=== PATIENT | female | born 1990 | race Caucasian/White ===

== ENCOUNTER → 2016-09-24 | Outpatient (CLI) | payer OTHER | LOC: RAD 08:44 | PROVIDERS: ATTEND Family Medicine | DX: R10.0 Acute abdomen (principal); R11.0 Nausea | CPT/HCPCS: 74249 ==

== ENCOUNTER → 2016-11-08 | Outpatient (CLI) | payer OTHER | LOC: CCC 12:59 | DX: R10.13 Epigastric pain (principal); R11.0 Nausea | CPT/HCPCS: 36415; 84443; 84702; 86677 ==

== ENCOUNTER → 2017-02-07 | Outpatient (CLI) | payer OTHER | LOC: RAD 10:48 | DX: R10.11 Right upper quadrant pain (principal) | CPT/HCPCS: 76700; 93976 ==

== ENCOUNTER → 2017-03-12 | Outpatient (CLI) | payer OTHER ==
--- NOTE | 2017-03-12 14:35 | RADIOLOGY REPORT (SQ) ---
EXAM DESCRIPTION: U/S NON-OB PELVIS W/O DOP COMPLETED DATE/TIME: 03/12/2017 2:05 pm REASON FOR STUDY: HIRSUTISM, PCOS L68.0 HIRSUTISM COMPARISON: None. TECHNIQUE: Dynamic and static grayscale images acquired of the pelvis via transabdominal approach an d recorded on PACS. Additional selected color Doppler and spectral images recorded. LIMITATIONS: Large patient, transabdominal technique FINDINGS: UTERUS: Contour normal. No mass. Uterus measures 7 x 3 x 3 cm in size. ENDOMETRIAL STRIPE: No focal or generalized thickening. No masses. 7 mm in thickness CERVIX: No nabothian cysts. RIGHT OVARY: Right ovary 2.8 x 2.4 x 2.6 cm in size with numerous peripheral hypoechoic follicular cy sts worrisome for polycystic ovarian disease RIGHT OVARY DOPPLER: Normal arterial vascular flow without evidence for torsion. LEFT OVARY: Left ovary 2.5 x 2.2 x 2.1 cm in size, with numerous peripheral hypoechoic follicular cys ts worrisome for polycystic ovarian disease LEFT OVARY DOPPLER: Normal arterial vascular flow without evidence for torsion. FREE FLUID: None noted. OTHER: No other significant finding. IMPRESSION: Findings worrisome for polycystic ovarian disease TECHNICAL DOCUMENTATION: JOB ID: [id number] [employer]- All Rights Reserved
== END ==
LOC: RAD 12:49
DX: L68.0 Hirsutism (principal); E28.2 Polycystic ovarian syndrome
CPT/HCPCS: 76856

== ENCOUNTER → 2017-05-14 | Outpatient (CLI) | payer OTHER ==
[2017-05-16 10:09] LABS: FOLLICLE STIMULATING HORMONE 3.2 mIU/mL (.); PROLACTIN 43.8 ng/mL (4.8-23.3)
[2017-05-19 10:48] LABS: 17-ALPHA HYDROXYPROGESTERONE 59 ng/dL (.)
== END ==
LOC: CCC 12:47
DX: E28.2 Polycystic ovarian syndrome (principal)
CPT/HCPCS: 36415; 82627; 83001; 83036; 83498; 84146; 84403; 84703

== ENCOUNTER → 2017-05-20 | Outpatient (CLI) | payer OTHER ==
[2017-05-20 14:50] LABS: ANION GAP 14 (5-19); BLOOD UREA NITROGEN 15 mg/dL (7-20); CALCIUM 10.1 mg/dL (8.4-10.2); CARBON DIOXIDE 25 mmol/L (22-30); CHLORIDE 103 mmol/L (98-107); CREATININE RESULT 0.83 mg/dL (0.52-1.25); GLUCOSE 95 mg/dL (75-110); POTASSIUM 4.4 mmol/L (3.6-5.0); SODIUM 141.9 mmol/L (137-145)
== END ==
LOC: CCC 13:45
DX: Z01.812 Encounter for preprocedural laboratory examination (principal)
CPT/HCPCS: 36415; 80048

== ENCOUNTER → 2017-05-23 | Outpatient (CLI) | payer OTHER ==
--- NOTE | 2017-05-27 09:13 | RADIOLOGY REPORT (SQ) ---
EXAM DESCRIPTION: MRI HEAD COMBO COMPLETED DATE/TIME: 05/23/2017 10:38 am REASON FOR STUDY: HYPERPROLACTINEMIA (E22.1) E22.1 HYPERPROLACTINEMIA G43.909 MIGRAINE, UNSP, NOT INTRACTABLE, WITHOUT STATUS MIGR COMPARISON: None. TECHNIQUE: Multiplanar imaging includes noncontrasted T1, T2, FLAIR, diffusion with ADC map and post gadolinium contrast T1 sequences. Images stored on PACS. Additional thin section T2, thin section pre and postcontrast T1 weighted images through the pituitar y gland with small field of view. CONTRAST TYPE AND DOSE: 15 mL Multihance. RENAL FUNCTION: GFR > 60. LIMITATIONS: None. FINDINGS: PITUITARY GLAND AND SELLA: Overall, the pituitary gland measures 10 mm craniocaudad by 8 m m transverse by 12 mm AP. A normal posterior pituitary bright spot is present. In the anterior lobe of the pituitary, on sagittal T2 image 7, a 5 x 5 mm nodule is present with signal slightly decrease d as compared to the remainder of the gland. On the T1 images both pre and post contrast this is not well seen. Patient may have a 5 mm microadenoma in the anterior lobe of the pituitary. The pituitary infundibulum is midline. No impression on the optic chiasm. Cavernous sinuses are nor mal. CSF SPACES: Normal in size and contour. No hemorrhage. CEREBRUM: Sulci and gyri normal in size and contour. Normal white matter signal on FLAIR imaging. No evidence of hemorrhage, mass, or extraaxial fluid collection. No abnormal enhancement post contrast. Benign venous angioma right frontal cortex of doubtful significance, axial T1 postcontrast image 21. POSTERIOR FOSSA: No signal alteration. No hemorrhage. No edema, masses, or mass effect. Internal pooja tory canals, cerebellopontine angles, mastoids normal. No enhancing lesions. No abnormal enhancement post contrast. DIFFUSION IMAGING: Negative for acute or subacute infarction. ORBITS: No masses. Globes normal. PARANASAL SINUSES: No fluid levels. Mucosa normal. OTHER: No other significant finding. IMPRESSION: Question 5 mm anterior lobe pituitary microadenoma. Remainder of the study is otherwise unremarkable. EVIDENCE OF ACUTE STROKE: NO. TECHNICAL DOCUMENTATION: JOB ID: [id number]- All Rights Reserved
== END ==
LOC: RAD 09:17
DX: E22.1 Hyperprolactinemia (principal)
CPT/HCPCS: 70553; A9576

== ENCOUNTER 2017-07-17 09:48 | Emergency (ER) | payer OTHER ==
[2017-07-17] MEDS ORDERED: ONDANSETRON 4 MG TAB.RAPDIS PO ONE (10:07)
[2017-07-17] MEDS ORDERED: DICYCLOMINE HCL 20 MG TABLET PO ONE (10:07)
[2017-07-17 10:36] LABS: ABSOLUTE EOSINOPHILS # (AUTO) 0.2 10^3/uL (0.0-0.6); ABSOLUTE LYMPHOCYTES (AUTO) 1.9 10^3/uL (0.5-4.7); ABSOLUTE MONOCYTES (AUTO) 0.4 10^3/uL (0.1-1.4); ABSOLUTE NEUT (AUTO) 3.2 10^3/uL (1.7-8.2); BASOPHILS % (AUTO) 0.7 % (0-2); EOSINOPHILS % (AUTO) 3.1 % (0-6); HEMATOCRIT 43.4 % (36.0-47.0); HEMOGLOBIN 15.2 g/dL (12.0-15.5); HGB HCT DIFFERENCE 2.2; LYMPHOCYTES % (AUTO) 33.1 % (13-45); MEAN CORPUSCULAR HEMOGLOBIN 30.2 pg (27.0-33.4); MEAN CORPUSCULAR VOLUME 86 fl (80-97); MONOCYTES % (AUTO) 7.5 % (3-13); RED BLOOD COUNT 5.03 10^6/uL (3.72-5.28); RED CELL DISTRIBUTION WIDTH 13.1 % (11.5-14.0); SEGMENTED NEUTROPHILS % (AUTO) 55.6 % (42-78); WHITE BLOOD COUNT 5.7 10^3/uL (4.0-10.5)
--- NOTE | 2017-07-17 10:40 | ER Document Report ---
ED General - General Chief Complaint: Abdominal Pain Stated Complaint: ABDOMINAL PAIN Time Seen by Provider: 07/17/17 10:07 TRAVEL OUTSIDE OF THE [place] IN LAST 30 DAYS: No - HPI Patient complains to provider of: Abdominal pain Notes: Patient coming in for abdominal pain ongoing for 1 week. Patient states the pain is in her intestines points to the middle of her abdomen. Denies any fever chills nausea vomiting or diarrhea. Patient states last bowel movement was approximately 2 days ago. Patient last menstrual cycle was on the . Patient denies taking any medications for her pain states that she recently stopped taking her trazodone and Reglan that was prescribed to her. Patient states she has dealt with constipation before the past. Patient otherwise resting comfortably no signs of any obvious distress upon my evaluation denies any recent antibiotics denies any surgical procedures denies any recent trauma. Past Medical History - Social History Smoking Status: Current Every Day Smoker Chew tobacco use (# tins/day): No - 6-7 cigarettes/day Frequency of alcohol use: Rare Drug Abuse: None Family History: Reviewed & Not Pertinent Renal/ Medical History: Denies: Hx Peritoneal Dialysis Review of Systems - Review of Systems Constitutional: No symptoms reported EENT: No symptoms reported Cardiovascular: No symptoms reported Respiratory: No symptoms reported Gastrointestinal: Abdominal pain Genitourinary: No symptoms reported Female Genitourinary: No symptoms reported Musculoskeletal: No symptoms reported Skin: No symptoms reported Hematologic/Lymphatic: No symptoms reported Neurological/Psychological: No symptoms reported Physical Exam - Vital signs Vitals: Temp Pulse Resp BP Pulse Ox 98.2 F 116 H 20 133/73 H 99 07/17/17 09:53 07/17/17 09:53 07/17/17 09:53 07/17/17 09:53 07/17/17 09:53 Interpretation: Normal - General General appearance: Appears well, Alert - HEENT Head: Normocephalic, Atraumatic Eyes: Normal Pupils: PERRL - Respiratory Respiratory status: No respiratory distress Chest status: Nontender Breath sounds: Normal Chest palpation: Normal - Cardiovascular Rhythm: Regular Heart sounds: Normal auscultation Murmur: No - Abdominal Inspection: Normal Distension: No distension Bowel sounds: Normal Tenderness: Nontender Organomegaly: No organomegaly - Back Back: Normal, Nontender - Extremities General upper extremity: Normal inspection, Nontender, Normal color, Normal ROM , Normal temperature General lower extremity: Normal inspection, Nontender, Normal color, Normal ROM , Normal temperature, Normal weight bearing. No: Neel's sign - Neurological Neuro grossly intact: Yes Cognition: Normal Orientation: AAOx4 Dowell Coma Scale Eye Opening: Spontaneous Dowell Coma Scale Verbal: Oriented Jorje Coma Scale Motor: Obeys Commands Jorje Coma Scale Total: 15 Speech: Normal Motor strength normal: LUE, RUE, LLE, RLE Sensory: Normal - Psychological Associated symptoms: Normal affect, Normal mood - Skin Skin Temperature: Warm Skin Moisture: Dry Skin Color: Normal Course - Re-evaluation Re-evalutation: 07/17/17 10:39 Vital signs showed tachycardia however on auscultation of the patient while resting in triage no signs of tachycardia. Patient had a normal heart rate. Patient examination otherwise benign no abdominal tenderness to deep auscultation of the patient's abdomen. Will check basic lab work and a acute abdominal series more likely discharge home at this time no signs of any surgical pathology. - Vital Signs Vital signs: Temp Pulse Resp BP Pulse Ox 98.2 F 116 H 20 133/73 H 99 07/17/17 09:53 07/17/17 09:53 07/17/17 09:53 07/17/17 09:53 07/17/17 09:53 - Laboratory Result Diagrams: 07/17/17 10:15 07/17/17 10:15 Laboratory results interpreted by me: 07/17/17 07/17/17 10:15 10:15 Calcium 10.4 H Urine Ketones 20 H Urine Urobilinogen 2.0 H Discharge - Discharge Clinical Impression: Abdominal pain Qualifiers: Abdominal location: unspecified location Qualified Code(s): R10.9 - Unspecified abdominal pain Condition: Good Instructions: Abdominal Pain ([facility]), Gastroenterology Additional Instructions: At this time your labs show no abnormalities your examination does not show any abnormalities consistent with a surgical or infectious pathology for your abdominal pain. Please continue your medications as prescribed we will send you home with pain medication Bentyl to help out with your pain. Follow-up with your primary care physician. I would recommend taking a daily stool softener to aid in possible constipation. Prescriptions: Dicyclomine HCl [Bentyl 20 mg Tablet] 20 mg PO QID #30 tablet Docusate Sodium [Colace 100 mg Capsule] 100 mg PO DAILY #30 capsule Forms: Return to Work
[2017-07-17 10:41] LABS: APPEARANCE,URINE CLOUDY; BILIRUBIN,URINE NEGATIVE (NEGATIVE); GLUCOSE, URINE NEGATIVE (NEGATIVE); KETONES,URINE 20 mg/dL (NEGATIVE); LEUKOCYTE ESTERASE,URINE NEGATIVE (NEGATIVE); NITRITE,URINE NEGATIVE (NEGATIVE); PROTEIN,URINE NEGATIVE (NEGATIVE); URINE SPECIFIC GRAVITY 1.027
[2017-07-17 10:56] LABS: ALANINE AMINOTRANSFERASE 31 U/L (9-52); ALBUMIN 4.8 g/dL (3.5-5.0); ALKALINE PHOSPHATASE 97 U/L (38-126); ANION GAP 16 (5-19); ASPARTATE AMINO TRANSFERASE 18 U/L (14-36); BILIRUBIN,DIRECT 0.4 mg/dL (0.0-0.4); BILIRUBIN,TOTAL 0.8 mg/dL (0.2-1.3); BLOOD UREA NITROGEN 11 mg/dL (7-20); CALCIUM 10.4 mg/dL (8.4-10.2); CARBON DIOXIDE 22 mmol/L (22-30); CHLORIDE 106 mmol/L (98-107); CREATININE RESULT 0.89 mg/dL (0.52-1.25); GLUCOSE 92 mg/dL (75-110); LIPASE 83.9 U/L (23-300); POTASSIUM 3.8 mmol/L (3.6-5.0); SODIUM 143.9 mmol/L (137-145); TOTAL PROTEIN 8.1 g/dL (6.3-8.2)
--- NOTE | 2017-07-17 11:01 | RADIOLOGY REPORT (SQ) ---
EXAM DESCRIPTION: ACUTE ABDOMEN SERIES COMPLETED DATE/TIME: 07/17/2017 10:46 am REASON FOR STUDY: abd pain COMPARISON: None. NUMBER OF VIEWS: Three views. TECHNIQUE: Frontal chest, supine abdomen and upright/decubitus abdomen radiographic images acquired. LIMITATIONS: None. FINDINGS: CHEST: Lungs clear of infiltrates. FREE AIR: None. No abnormal gas collections. BOWEL GAS PATTERN: Nonobstructive pattern. No dilated loops or air fluid levels. CALCIFICATIONS: No suspicious calcifications. HARDWARE: None in the abdomen. SOFT TISSUES: No gross mass or suggestion of organomegaly. BONES: No acute fracture. No worrisome bone lesions. OTHER: No other significant finding. IMPRESSION: NO RADIOGRAPHIC EVIDENCE FOR ACUTE ABDOMINAL DISEASE. TECHNICAL DOCUMENTATION: JOB ID: [id number] [employer]- All Rights Reserved
[2017-07-17 11:29] VITALS: BP 128/77
== END 2017-07-17 11:34 | disposition home or self-care (01) ==
LOC: ER 09:48
DX: R10.9 Unspecified abdominal pain (principal); F17.210 Nicotine dependence, cigarettes, uncomplicated
CPT/HCPCS: 99284; 36415; 84702; 83690; 85025; 80053; 81001; 74022; J3490; S0119

== ENCOUNTER 2017-09-03 09:57 | Emergency (ER) | payer OTHER ==
[2017-09-03] MEDS ORDERED: KETOROLAC TROMETHAMINE 60 MG/2 ML SDV IM ONE (10:48)
--- NOTE | 2017-09-03 10:54 | ER Document Report ---
ED General - General Chief Complaint: Low Back Pain Stated Complaint: LOW BACK PAIN Time Seen by Provider: 09/03/17 10:30 Notes: 27 yo female c/o bilat flank and low back pain x 3wks. + urinary frequency, urgency and dysuria. denies any vaginal discharge, odor or pain. admits to taking a friend's "left over antibiotic" which temporarily eased the symptoms. denies fever, nausea or vomiting TRAVEL OUTSIDE OF THE [place] IN LAST 30 DAYS: No - HPI Onset/Duration: Persistent Quality of pain: Achy Pain Level: 3 Associated symptoms: denies: Chills, Fever Exacerbated by: Denies Relieved by: Denies Similar symptoms previously: Yes Recently seen / treated by doctor: No - Related Data Allergies/Adverse Reactions: No Known Allergies Allergy (Unverified 09/03/17 10:00) Past Medical History - General Information source: Patient - Social History Smoking Status: Current Every Day Smoker Cigarette use (# per day): Yes - 7 Frequency of alcohol use: None Drug Abuse: None Family History: Reviewed & Not Pertinent Patient has suicidal ideation: No Patient has homicidal ideation: No Neurological Medical History: Reports: Hx Migraine Endocrine Medical History: Reports: Other - PCOS Renal/ Medical History: Denies: Hx Peritoneal Dialysis Malignancy Medical History: Reports: Other - pituitary tumor GI Medical History: Reports: Hx Gastroesophageal Reflux Disease Review of Systems - Review of Systems Constitutional: No symptoms reported EENT: No symptoms reported Cardiovascular: No symptoms reported Respiratory: No symptoms reported Gastrointestinal: No symptoms reported Genitourinary: See HPI Female Genitourinary: No symptoms reported Musculoskeletal: No symptoms reported Skin: No symptoms reported Hematologic/Lymphatic: No symptoms reported Neurological/Psychological: No symptoms reported Physical Exam - Vital signs Vitals: Temp Pulse Resp BP Pulse Ox 98.5 F 113 H 12 146/78 H 98 09/03/17 10:04 09/03/17 10:04 09/03/17 10:04 09/03/17 10:04 09/03/17 10:04 Interpretation: Normal - General General appearance: Appears well, Alert - HEENT Head: Normocephalic, Atraumatic Eyes: Normal Pupils: PERRL - Respiratory Respiratory status: No respiratory distress Chest status: Nontender Breath sounds: Normal Chest palpation: Normal - Cardiovascular Rhythm: Regular Heart sounds: Normal auscultation Murmur: No - Abdominal Inspection: Normal Distension: No distension Bowel sounds: Normal Tenderness: Nontender Organomegaly: No organomegaly - Back Back: Tender, CVA tenderness - bilat. No: Vertebra tenderness - Extremities General upper extremity: Normal inspection, Nontender, Normal color, Normal ROM , Normal temperature General lower extremity: Normal inspection, Nontender, Normal color, Normal ROM , Normal temperature, Normal weight bearing. No: Neel's sign - Neurological Neuro grossly intact: Yes Cognition: Normal Orientation: AAOx4 Maud Coma Scale Eye Opening: Spontaneous Maud Coma Scale Verbal: Oriented Jorje Coma Scale Motor: Obeys Commands Jorje Coma Scale Total: 15 Speech: Normal Motor strength normal: LUE, RUE, LLE, RLE Sensory: Normal - Psychological Associated symptoms: Normal affect, Normal mood - Skin Skin Temperature: Warm Skin Moisture: Dry Skin Color: Normal Course - Re-evaluation Re-evalutation: 09/03/17 11:34 urinalysis is unremarkable, but pt is classically symptomatic. will treat for UTI and wait for urine culture results. pt is showing no signs of sepsis or shock. home care, f/u pcm, ED return precautions discussed with pt. pt agreeable with plan and stable for discharge - Vital Signs Vital signs: Temp Pulse Resp BP Pulse Ox 98.5 F 113 H 12 146/78 H 98 09/03/17 10:04 09/03/17 10:04 09/03/17 10:04 09/03/17 10:04 09/03/17 10:04 Discharge - Discharge Clinical Impression: Dysuria Condition: Stable Disposition: HOME, SELF-CARE Instructions: Urinary Tract Infection ([facility]), Antibiotic Therapy ([facility]), Ibuprofen (General) ([facility]) Additional Instructions: take meds as prescribed urine culture is pending warm compresses to back follow nup with parimary care if symtpoms persist return to ER for any worsening Prescriptions: Ciprofloxacin HCl [Cipro 500 mg Tablet] 500 mg PO BID #10 tablet Ibuprofen [Motrin 800 Mg Tablet] 800 mg PO Q6H #20 tablet Referrals: BRYANT WHEELER MD [Primary Care Provider] - Follow up as needed
[2017-09-03 11:05] LABS: APPEARANCE,URINE CLEAR; BILIRUBIN,URINE NEGATIVE (NEGATIVE); COLOR,URINE COLORLESS; GLUCOSE, URINE NEGATIVE (NEGATIVE); KETONES,URINE NEGATIVE (NEGATIVE); LEUKOCYTE ESTERASE,URINE NEGATIVE (NEGATIVE); NITRITE,URINE NEGATIVE (NEGATIVE); PROTEIN,URINE NEGATIVE (NEGATIVE); URINE SPECIFIC GRAVITY 1.003; UROBILINOGEN,URINE NEGATIVE mg/dL (<2.0)
[2017-09-03 11:48] VITALS: BP 120/70
== END 2017-09-03 11:49 | disposition home or self-care (01) ==
LOC: ER 09:57
DX: R30.0 Dysuria (principal); M54.5 Low back pain; R35.0 Frequency of micturition; R39.15 Urgency of urination; F17.210 Nicotine dependence, cigarettes, uncomplicated
CPT/HCPCS: 99283; 96372; 87086; 81001; J1885

== ENCOUNTER 2017-10-25 13:08 | Emergency (ER) | payer MEDICAID, OTHER ==
[2017-10-25] MEDS ORDERED: NORMAL SALINE 1000 ML 1,000 ML IV ONE (14:06)
--- NOTE | 2017-10-25 14:26 | ER Document Report ---
ED GI/ - General Chief Complaint: Flank Pain Stated Complaint: FLANK PAIN,CONGESTION Time Seen by Provider: 10/25/17 13:54 Information source: Patient Notes: 27-year-old female who presents today with some bilateral flank pain, left greater than right. She states this past August she was diagnosed with urinary tract infection. She has no history of kidney stones. Family including the father at the bedside states that the family has a strong history of kidney stones. She states for the last 2 weeks she has had some intermittent bilateral pain in the kidneys. She denies any dysuria, nausea, vomiting, or fevers. She also states some mild congestion, cough, without fevers during the same time. She denies any vaginal discharge. TRAVEL OUTSIDE OF THE [place] IN LAST 30 DAYS: No - HPI Patient complains to provider of: Other - See above Onset: Other - See above Timing/Duration: Gradual Quality of pain: Achy Severity at maximum: Moderate Severity in ED: Mild Pain Level: 1 Location: Other - See above Vaginal bleeding (Compared to normal period): None Sexual history: Inactive Associated symptoms: Other - See above Exacerbated by: Denies Relieved by: Denies Similar symptoms previously: Yes Recently seen / treated by doctor: Yes - Related Data Allergies/Adverse Reactions: No Known Allergies Allergy (Verified 10/25/17 13:09) Past Medical History - General Information source: Patient - Social History Smoking Status: Unknown if Ever Smoked Cigarette use (# per day): No Chew tobacco use (# tins/day): No Smoking Education Provided: No Family History: Reviewed & Not Pertinent Patient has suicidal ideation: No Patient has homicidal ideation: No Neurological Medical History: Reports: Hx Migraine Renal/ Medical History: Denies: Hx Peritoneal Dialysis GI Medical History: Reports: Hx Gastroesophageal Reflux Disease, Hx Hiatal Hernia Review of Systems - Review of Systems Constitutional: denies: Fever EENT: denies: Eye discharge, Nose discharge Cardiovascular: denies: Chest pain, Palpitations Respiratory: denies: Short of breath Gastrointestinal: denies: Abdominal pain, Vomiting Genitourinary: denies: Dysuria Musculoskeletal: denies: Leg swelling Skin: Other - no hives. denies: Rash Neurological/Psychological: Other - no slurred speech -: Yes All other systems reviewed and negative Physical Exam - Vital signs Vitals: Temp Pulse Resp BP Pulse Ox 98.7 F 111 H 16 137/83 H 100 10/25/17 13:22 10/25/17 13:22 10/25/17 13:22 10/25/17 13:22 10/25/17 13:22 Notes: Reviewed vital signs and nursing note as charted by RN. CONSTITUTIONAL: Alert and oriented and responds appropriately to questions. Well -appearing; well-nourished HEAD: Normocephalic; atraumatic ENT: Normal nose; no rhinorrhea; moist mucous membranes NECK: Supple without meningismus; non-tender CARD: Regular rate and rhythm; no murmurs RESP: Normal chest excursion without splinting or tachypnea; breath sounds clear and equal bilaterally ABD/GI: Normal bowel sounds; non-distended; soft, non-tender currently to deep palpation of all 4 quadrants of the abdomen BACK: The back appears normal and is non-tender to palpation, there is mild bilateral CVA tenderness with no swelling or erythema noted EXT: Normal ROM in all joints; non-tender to palpation SKIN: No acute lesions noted NEURO: Moves all extremities equally; Motor and sensory function intact PSYCH: The patient's mood and manner are appropriate. Grooming and personal hygiene are appropriate. Course - Re-evaluation Re-evalutation: 10/25/17 14:26 Given the history and physical examination we will obtain basic labs, urinalysis , renal colic protocol CT scan, and reassess. Patient currently has no tenderness to all 4 quadrants of the abdomen. She is a little tachycardic and a fluid liter bolus have been ordered. 10/25/17 15:51 Labs as recorded. Normal white count. No obvious urinary tract infection. CT scan renal colic protocol shows no obvious kidney stones or intra-abdominal process present. Given that the patient does have a runny nose, congestion, body aches, and backaches, I do believe that the patient may be suffering also from influenza. Patient still has no abdominal tenderness to palpation. Given the onset of symptomatology, I do not believe Tamiflu would be beneficial. I therefore do not believe the influenza test would be beneficial either at this moment. Patient still has no tenderness to the abdomen on repeat examination. Patient has no shortness of breath with stable vital signs. Lungs are clear to auscultation. I do not believe a pneumonia is likely. We will send a urine culture and discharge the patient home with strict return precautions. - Vital Signs Vital signs: Temp Pulse Resp BP Pulse Ox 98.7 F 111 H 16 137/83 H 100 10/25/17 13:22 10/25/17 13:22 10/25/17 13:22 10/25/17 13:22 10/25/17 13:22 - Laboratory Result Diagrams: 10/25/17 14:19 10/25/17 14:19 Laboratory results interpreted by me: 10/25/17 10/25/17 13:34 14:19 Chloride 108 H Urine Blood LARGE H Urine Urobilinogen 2.0 H Discharge - Discharge Clinical Impression: Nasal congestion Back pain Qualifiers: Back pain location: back pain in unspecified location Chronicity: acute Back pain laterality: unspecified Qualified Code(s): M54.9 - Dorsalgia, unspecified Condition: Good Disposition: HOME, SELF-CARE Additional Instructions: Come back immediately with any fevers, vomiting, rash, or any other acute problems. Please make sure you follow up with the primary care physician as we have discussed.
[2017-10-25 14:36] LABS: APPEARANCE,URINE SLIGHTLY-CLOUDY; BILIRUBIN,URINE NEGATIVE (NEGATIVE); COLOR,URINE YELLOW; GLUCOSE, URINE NEGATIVE (NEGATIVE); KETONES,URINE NEGATIVE (NEGATIVE); LEUKOCYTE ESTERASE,URINE NEGATIVE (NEGATIVE); NITRITE,URINE NEGATIVE (NEGATIVE); PROTEIN,URINE NEGATIVE (NEGATIVE); URINE SPECIFIC GRAVITY 1.023
[2017-10-25 14:38] LABS: ABSOLUTE EOSINOPHILS # (AUTO) 0.2 10^3/uL (0.0-0.6); ABSOLUTE LYMPHOCYTES (AUTO) 1.3 10^3/uL (0.5-4.7); ABSOLUTE MONOCYTES (AUTO) 0.4 10^3/uL (0.1-1.4); BASOPHILS % (AUTO) 0.8 % (0-2); EOSINOPHILS % (AUTO) 3.4 % (0-6); HEMATOCRIT 43.3 % (36.0-47.0); HEMOGLOBIN 14.8 g/dL (12.0-15.5); LYMPHOCYTES % (AUTO) 26.2 % (13-45); MEAN CORPUSCULAR HEMOGLOBIN 29.6 pg (27.0-33.4); MEAN CORPUSCULAR HGB CONC 34.1 g/dL (32.0-36.0); MEAN CORPUSCULAR VOLUME 87 fl (80-97); MONOCYTES % (AUTO) 7.3 % (3-13); PLATELET COUNT 262 10^3/uL (150-450); RED BLOOD COUNT 4.99 10^6/uL (3.72-5.28); RED CELL DISTRIBUTION WIDTH 13.4 % (11.5-14.0); SEGMENTED NEUTROPHILS % (AUTO) 62.3 % (42-78); TOTAL CELLS COUNTED % (AUTO) 100 %; WHITE BLOOD COUNT 4.8 10^3/uL (4.0-10.5)
[2017-10-25 14:55] LABS: ANION GAP 10 (5-19); BLOOD UREA NITROGEN 12 mg/dL (7-20); CALCIUM 10.1 mg/dL (8.4-10.2); CARBON DIOXIDE 24 mmol/L (22-30); CHLORIDE 108 mmol/L (98-107); GLUCOSE 99 mg/dL (75-110); POTASSIUM 4.1 mmol/L (3.6-5.0); SODIUM 141.8 mmol/L (137-145)
--- NOTE | 2017-10-25 15:29 | RADIOLOGY REPORT (SQ) ---
EXAM DESCRIPTION: CT LTD RENAL STONE PROTOCOL ON COMPLETED DATE/TIME: 10/25/2017 3:03 pm REASON FOR STUDY: flank pain COMPARISON: None. TECHNIQUE: CT scan of the abdomen and pelvis performed without intravenous or oral contrast. Images reviewed with lung, soft tissue, and bone windows. Reconstructed coronal and sagittal MPR images revi ewed. All images stored on PACS. All CT scanners at this facility use dose modulation, iterative reconstruction, and/or weight based d osing when appropriate to reduce radiation dose to as low as reasonably achievable (ALARA). [facility]: Dose Right [facility]: CareDose [facility]: Dose Right [facility]: Teradose 4D [facility]: Smart Coupz RADIATION DOSE: CT Rad equipment meets quality standard of care and radiation dose reduction techniq ues were employed. CTDIvol: 11.8 mGy. DLP: 709 mGy-cm.mGy. LIMITATIONS: None. FINDINGS: LOWER CHEST: No significant findings. No nodules or infiltrates. NON-CONTRASTED LIVER, SPLEEN, ADRENALS: Evaluation limited by lack of IV contrast. No identified sign ificant masses. PANCREAS: No masses. No peripancreatic inflammatory changes. GALLBLADDER: No identified stones by CT criteria. No inflammatory changes to suggest cholecystitis. RIGHT KIDNEY AND URETER: No suspicious masses. Assessment limited by lack of IV contrast. No signif icant calcifications. No hydronephrosis or hydroureter. LEFT KIDNEY AND URETER: No suspicious masses. Assessment limited by lack of IV contrast. No signifi cant calcifications. No hydronephrosis or hydroureter. AORTA AND RETROPERITONEUM: No aneurysm. No retroperitoneal masses or adenopathy. BOWEL AND PERITONEAL CAVITY: No obvious masses or inflammatory changes. No free fluid. APPENDIX: Normal. PELVIS, BLADDER, AND ABDOMINAL WALL:No abnormal masses. No free fluid. Bladder normal. BONES: No significant findings. OTHER: No other significant finding. IMPRESSION: NO SIGNIFICANT OR ACUTE PROCESS IN THE ABDOMEN OR PELVIS. COMMENT: Quality ID # [id number]: Final reports with documentation of one or more dose reduction techniques (e.g., Automated exposure control, adjustment of the mA and/or kV according to patient size, use of iterative reconstruction technique) TECHNICAL DOCUMENTATION: JOB ID: [id number] [employer]- All Rights Reserved
[2017-10-25 16:37] VITALS: BP 125/66
== END 2017-10-25 16:35 | disposition home or self-care (01) ==
LOC: ER 13:08
DX: R09.81 Nasal congestion (principal); R10.9 Unspecified abdominal pain; R05 Cough; M54.9 Dorsalgia, unspecified
CPT/HCPCS: 99284; 96360; 36415; 87086; 85025; 81025; 80048; 81001; 76380; J7030

== ENCOUNTER 2017-11-14 21:37 | Emergency (ER) | payer SELFPAY ==
[2017-11-14 23:14] LABS: APPEARANCE,URINE CLEAR; BILIRUBIN,URINE NEGATIVE (NEGATIVE); COLOR,URINE STRAW; GLUCOSE, URINE NEGATIVE (NEGATIVE); KETONES,URINE NEGATIVE (NEGATIVE); LEUKOCYTE ESTERASE,URINE NEGATIVE (NEGATIVE); NITRITE,URINE NEGATIVE (NEGATIVE); PROTEIN,URINE NEGATIVE (NEGATIVE); URINE SPECIFIC GRAVITY 1.006; UROBILINOGEN,URINE NEGATIVE mg/dL (<2.0)
[2017-11-14] MEDS ORDERED: PHENAZOPYRIDINE HCL 200 MG TABLET PO ONE (23:37)
--- NOTE | 2017-11-14 23:45 | ER Document Report ---
ED General - General Chief Complaint: Flank Pain Stated Complaint: R FLANK PAIN Time Seen by Provider: 11/14/17 23:04 TRAVEL OUTSIDE OF THE [place] IN LAST 30 DAYS: No - HPI Patient complains to provider of: Right flank pain Notes: Patient coming in for right flank pain. Patient is concerned she may has a urinary tract infection. Patient was recently seen for possible urinary tract infection had urinalysis and a CAT scan performed. Patient also at that time had a urine culture performed which did not show any growth. Patient denies fevers chills nausea vomiting states slight dysuria. Patient resting comfortably upon my evaluation no signs of any obvious distress. - Related Data Allergies/Adverse Reactions: No Known Allergies Allergy (Verified 10/25/17 13:09) Past Medical History - Social History Smoking Status: Current Every Day Smoker Chew tobacco use (# tins/day): No Frequency of alcohol use: None Drug Abuse: None Family History: Reviewed & Not Pertinent Patient has suicidal ideation: No Patient has homicidal ideation: No Neurological Medical History: Reports: Hx Migraine Renal/ Medical History: Denies: Hx Peritoneal Dialysis GI Medical History: Reports: Hx Gastroesophageal Reflux Disease, Hx Hiatal Hernia Review of Systems - Review of Systems Constitutional: No symptoms reported EENT: No symptoms reported Cardiovascular: No symptoms reported Respiratory: No symptoms reported Gastrointestinal: No symptoms reported Genitourinary: Flank pain Female Genitourinary: No symptoms reported Musculoskeletal: No symptoms reported Skin: No symptoms reported Hematologic/Lymphatic: No symptoms reported Neurological/Psychological: No symptoms reported -: Yes All other systems reviewed and negative Physical Exam - Vital signs Vitals: Temp Pulse Resp BP Pulse Ox 98.9 F 93 18 130/72 H 99 11/14/17 21:54 11/14/17 21:54 11/14/17 21:54 11/14/17 21:54 11/14/17 21:54 Interpretation: Normal - General General appearance: Appears well, Alert - HEENT Head: Normocephalic, Atraumatic Eyes: Normal Pupils: PERRL - Respiratory Respiratory status: No respiratory distress Chest status: Nontender Breath sounds: Normal Chest palpation: Normal - Cardiovascular Rhythm: Regular Heart sounds: Normal auscultation Murmur: No - Abdominal Inspection: Normal Distension: No distension Bowel sounds: Normal Tenderness: Nontender Organomegaly: No organomegaly - Back Back: Normal, Nontender - Extremities General upper extremity: Normal inspection, Nontender, Normal color, Normal ROM , Normal temperature General lower extremity: Normal inspection, Nontender, Normal color, Normal ROM , Normal temperature, Normal weight bearing. No: Neel's sign - Neurological Neuro grossly intact: Yes Cognition: Normal Orientation: AAOx4 Jorje Coma Scale Eye Opening: Spontaneous Spangle Coma Scale Verbal: Oriented Spangle Coma Scale Motor: Obeys Commands Jorje Coma Scale Total: 15 Speech: Normal Motor strength normal: LUE, RUE, LLE, RLE Sensory: Normal - Psychological Associated symptoms: Normal affect, Normal mood - Skin Skin Temperature: Warm Skin Moisture: Dry Skin Color: Normal Course - Re-evaluation Re-evalutation: 11/15/17 02:22 Patient's previous visit was reviewed. CAT scan was reviewed no signs of gallbladder pathology or kidney stones at that time. Did not think patient will require any further imaging at this time. Urinalysis does not show any signs of infection small amount of blood only 6 red blood cells. Patient etiology for right flank pain is unclear possible more muscle skeletal patient does hurt when she moves around. Patient will be discharged home follow-up with primary care physician will give Pyridium for her dysuria. Urine culture will be sent again as well - Vital Signs Vital signs: Temp Pulse Resp BP Pulse Ox 98.6 F 81 18 132/77 H 99 11/14/17 23:46 11/14/17 23:46 11/14/17 23:46 11/14/17 23:46 11/14/17 23:46 - Laboratory Laboratory results interpreted by me: 11/14/17 22:30 Urine Blood MODERATE H Discharge - Discharge Clinical Impression: Flank pain Condition: Good Disposition: HOME, SELF-CARE Instructions: Flank Pain ([facility]) Additional Instructions: Your urinalysis today does not show any signs of a urinary tract infection or kidney infection. Your also not . I did review her last visit and reviewed your CAT scan at that time there is no other significant pathology that could be causing her flank pain today. I would recommend following up with your primary care physician for further evaluation. Take Pyridium Tylenol and Motrin for pain. Prescriptions: Phenazopyridine HCl [Pyridium 100 Mg Tablet] 100 mg PO TID #15 tablet Referrals: ELINA CURRY MD [Primary Care Provider] - Follow up as needed
[2017-11-14 23:56] VITALS: BP 132/77
== END 2017-11-14 23:56 | disposition home or self-care (01) ==
LOC: ER 21:37
DX: R10.9 Unspecified abdominal pain (principal); F17.200 Nicotine dependence, unspecified, uncomplicated
CPT/HCPCS: 99284; 81025; 81001; J3490

== ENCOUNTER → 2017-11-20 | Outpatient (CLI) | payer OTHER ==
[2017-11-20 13:10] LABS: APPEARANCE,URINE CLEAR; BILIRUBIN,URINE NEGATIVE (NEGATIVE); COLOR,URINE STRAW; GLUCOSE, URINE NEGATIVE (NEGATIVE); KETONES,URINE NEGATIVE (NEGATIVE); LEUKOCYTE ESTERASE,URINE NEGATIVE (NEGATIVE); NITRITE,URINE NEGATIVE (NEGATIVE); PROTEIN,URINE NEGATIVE (NEGATIVE); URINE SPECIFIC GRAVITY 1.004; UROBILINOGEN,URINE NEGATIVE mg/dL (<2.0)
[2017-11-20 13:38] LABS: FREE T3 3.75 pg/mL (2.77-5.27)
[2017-11-20 13:52] LABS: THYROID STIMULATING HORMONE 0.89 uIU/mL (0.47-4.68)
[2017-11-20 14:42] LABS: CHLAM PCR NOT DETECTED (NOT DETECT); GON PCR NOT DETECTED (NOT DETECT)
[2017-11-21 08:09] LABS: THYROXINE (T4) 6.9 ug/dL (4.5-12.0)
[2017-11-21 08:10] LABS: GROWTH HORMONE <0.1 ng/mL (0.0-10.0)
[2017-11-21 08:53] LABS: INSULIN-LIKE GROWTH FACTOR I 311 ng/mL (93-342)
[2017-11-21 14:40] LABS: ADRENOCORTICOTROPIC HORMONE 16.5 pg/mL (7.2-63.3)
[2017-11-22 12:24] LABS: ESTROGENS TOTAL 67 pg/mL (.)
== END ==
LOC: CCC 11:58
DX: R10.9 Unspecified abdominal pain (principal); R31.29 Other microscopic hematuria; J02.9 Acute pharyngitis, unspecified; E23.6 Other disorders of pituitary gland
CPT/HCPCS: 36415; 81001; 82024; 82533; 82672; 83002; 83003; 84305; 84436; 84443; 84481; 87070; 87491; 87591; 87880

== ENCOUNTER → 2018-02-26 | Outpatient (CLI) | payer OTHER ==
[2018-02-26 15:57] LABS: ABSOLUTE EOSINOPHILS # (AUTO) 0.3 10^3/uL (0.0-0.6); ABSOLUTE LYMPHOCYTES (AUTO) 1.5 10^3/uL (0.5-4.7); ABSOLUTE MONOCYTES (AUTO) 0.4 10^3/uL (0.1-1.4); ABSOLUTE NEUT (AUTO) 3.4 10^3/uL (1.7-8.2); BASOPHILS % (AUTO) 0.6 % (0-2); EOSINOPHILS % (AUTO) 4.9 % (0-6); HEMATOCRIT 41.5 % (36.0-47.0); LYMPHOCYTES % (AUTO) 26.6 % (13-45); MEAN CORPUSCULAR HEMOGLOBIN 29.3 pg (27.0-33.4); MEAN CORPUSCULAR HGB CONC 33.8 g/dL (32.0-36.0); MEAN CORPUSCULAR VOLUME 87 fl (80-97); MONOCYTES % (AUTO) 7.3 % (3-13); PLATELET COUNT 253 10^3/uL (150-450); RED BLOOD COUNT 4.78 10^6/uL (3.72-5.28); RED CELL DISTRIBUTION WIDTH 13.4 % (11.5-14.0); SEGMENTED NEUTROPHILS % (AUTO) 60.6 % (42-78); TOTAL CELLS COUNTED % (AUTO) 100 %; WHITE BLOOD COUNT 5.6 10^3/uL (4.0-10.5)
[2018-02-26 16:26] LABS: ALBUMIN 4.2 g/dL (3.5-5.0); ANION GAP 13 (5-19); BLOOD UREA NITROGEN 13 mg/dL (7-20); CALCIUM 9.9 mg/dL (8.4-10.2); CARBON DIOXIDE 22 mmol/L (22-30); CHLORIDE 109 mmol/L (98-107); GLUCOSE 84 mg/dL (75-110); POTASSIUM 4.3 mmol/L (3.6-5.0); SODIUM 144.1 mmol/L (137-145)
== END ==
LOC: OD 14:00
DX: L00-L99 Diseases of the skin and subcutaneous tissue (principal); E28.2 Polycystic ovarian syndrome
CPT/HCPCS: 36415; 80048; 82040; 82627; 83001; 83002; 83036; 83498; 84143; 84146; 84702; 85025

== ENCOUNTER → 2018-02-27 | Outpatient (CLI) | payer OTHER ==
--- NOTE | 2018-03-02 07:05 | RADIOLOGY REPORT (SQ) ---
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 Images stored on PACS. Additional thin section sagittal and coronal T2, T1 precontrast, T1 post contrasted images were obtai rosina through the pituitary fossa. CONTRAST TYPE AND DOSE: 20 mL Multihance. RENAL FUNCTION: None required. The patient is less than 50 years old. LIMITATIONS: None. FINDINGS: PITUITARY: Pituitary gland is normal size, 10 x 8 x 12 mm. Midline infundibulum. Normal posterior pituitary bright spot. Normal suprasellar cistern. Normal cavernous sinuses. Questionable adenoma seen on prior study is no longer apparent. CSF SPACES: Normal in size and contour. No hemorrhage. CEREBRUM: Sulci and gyri normal in size and contour. Normal white matter signal on FLAIR imaging. No evidence of hemorrhage, mass, or extraaxial fluid collection. No abnormal enhancement post contrast. POSTERIOR FOSSA: No signal alteration. No hemorrhage. No edema, masses, or mass effect. Internal pooja tory canals, cerebellopontine angles, mastoids normal. No enhancing lesions. No abnormal enhancement post contrast. DIFFUSION IMAGING: Negative for acute or subacute infarction. ORBITS: No masses. Globes normal. PARANASAL SINUSES: No fluid levels. Mucosa normal. OTHER: No other significant finding. IMPRESSION: NORMAL MRI OF THE BRAIN WITHOUT AND WITH INTRAVENOUS GADOLINIUM CONTRAST. EVIDENCE OF ACUTE STROKE: NO. TECHNICAL DOCUMENTATION: JOB ID: [id number]- All Rights Reserved Reading location - IP/workstation name: [email or web address]
== END ==
LOC: RAD 19:25
DX: D35.2 Benign neoplasm of pituitary gland (principal)
CPT/HCPCS: 70553; A9577

== ENCOUNTER 2018-04-18 12:18 | Emergency (ER) | payer OTHER ==
--- NOTE | 2018-04-18 13:25 | ER Document Report ---
ED Medical Screen (RME) - General Chief Complaint: Abdominal Pain Stated Complaint: BACK PAIN Time Seen by Provider: 04/18/18 13:24 Mode of Arrival: Ambulatory Information source: Patient Notes: This is a 27-year-old female with a history of PCO S, "undiagnosed bladder condition" who presents to the emergency room with flank pain. For the past 2 weeks along with dysuria. Patient did take 3 days of Cipro and had some resolution of the pain but now with come back. Patient denies any fever, chills , nausea vomiting. TRAVEL OUTSIDE OF THE [place] IN LAST 30 DAYS: No - Related Data Allergies/Adverse Reactions: No Known Allergies Allergy (Verified 04/18/18 12:19) Past Medical History - Social History Chew tobacco use (# tins/day): No Frequency of alcohol use: None Drug Abuse: None Neurological Medical History: Reports: Hx Migraine Renal/ Medical History: Denies: Hx Peritoneal Dialysis GI Medical History: Reports: Hx Gastroesophageal Reflux Disease, Hx Hiatal Hernia Physical Exam - Vital signs Vitals: Temp Pulse Resp BP Pulse Ox 98.9 F 75 16 129/71 H 99 04/18/18 12:33 04/18/18 12:33 04/18/18 12:33 04/18/18 12:33 04/18/18 12:33 Course - Vital Signs Vital signs: Temp Pulse Resp BP Pulse Ox 98.9 F 75 16 129/71 H 99 04/18/18 12:33 04/18/18 12:33 04/18/18 12:33 04/18/18 12:33 04/18/18 12:33 Doctor's Discharge - Discharge Referrals: [facility] [Primary Care Provider] - Follow up as needed
[2018-04-18 13:53] LABS: APPEARANCE,URINE CLEAR; BILIRUBIN,URINE NEGATIVE (NEGATIVE); COLOR,URINE STRAW; GLUCOSE, URINE NEGATIVE (NEGATIVE); KETONES,URINE NEGATIVE (NEGATIVE); LEUKOCYTE ESTERASE,URINE NEGATIVE (NEGATIVE); NITRITE,URINE NEGATIVE (NEGATIVE); PROTEIN,URINE NEGATIVE (NEGATIVE); URINE SPECIFIC GRAVITY 1.008; UROBILINOGEN,URINE NEGATIVE mg/dL (<2.0)
[2018-04-18 13:59] LABS: ABSOLUTE EOSINOPHILS # (AUTO) 0.3 10^3/uL (0.0-0.6); ABSOLUTE LYMPHOCYTES (AUTO) 1.7 10^3/uL (0.5-4.7); ABSOLUTE MONOCYTES (AUTO) 0.4 10^3/uL (0.1-1.4); ABSOLUTE NEUT (AUTO) 3.3 10^3/uL (1.7-8.2); BASOPHILS % (AUTO) 0.5 % (0-2); EOSINOPHILS % (AUTO) 4.6 % (0-6); HEMATOCRIT 43.9 % (36.0-47.0); HEMOGLOBIN 14.6 g/dL (12.0-15.5); LYMPHOCYTES % (AUTO) 29.5 % (13-45); MEAN CORPUSCULAR HEMOGLOBIN 28.8 pg (27.0-33.4); MEAN CORPUSCULAR HGB CONC 33.3 g/dL (32.0-36.0); MEAN CORPUSCULAR VOLUME 86 fl (80-97); MONOCYTES % (AUTO) 6.9 % (3-13); PLATELET COUNT 293 10^3/uL (150-450); RED BLOOD COUNT 5.09 10^6/uL (3.72-5.28); RED CELL DISTRIBUTION WIDTH 13.2 % (11.5-14.0); SEGMENTED NEUTROPHILS % (AUTO) 58.5 % (42-78); TOTAL CELLS COUNTED % (AUTO) 100 %; WHITE BLOOD COUNT 5.6 10^3/uL (4.0-10.5)
[2018-04-18 14:20] LABS: ALANINE AMINOTRANSFERASE 38 U/L (9-52); ALBUMIN 4.4 g/dL (3.5-5.0); ALKALINE PHOSPHATASE 94 U/L (38-126); ANION GAP 12 (5-19); ASPARTATE AMINO TRANSFERASE 18 U/L (14-36); BILIRUBIN,DIRECT 0.2 mg/dL (0.0-0.4); BILIRUBIN,TOTAL 0.3 mg/dL (0.2-1.3); BLOOD UREA NITROGEN 11 mg/dL (7-20); CALCIUM 9.7 mg/dL (8.4-10.2); CARBON DIOXIDE 25 mmol/L (22-30); CHLORIDE 106 mmol/L (98-107); GLUCOSE 87 mg/dL (75-110); SODIUM 143.2 mmol/L (137-145); TOTAL PROTEIN 7.6 g/dL (6.3-8.2)
[2018-04-18 15:35] VITALS: BP 117/61
--- NOTE | 2018-04-18 15:59 | ER Document Report ---
HPI - HPI Pain Level: 4 Notes: Patient is a 27-year-old female with no significant past medical history who presents to the ED complaining of bilateral mid/lower back pain ongoing for the last 8 months. Patient states that she has had imaging and several evaluations performed for the same issue. Patient states that she has flareups about once to twice per month. Patient states that her previous flareup was early in March and then again just recently. Patient states that the pains do not radiate. Twisting and moving makes the pain worse. She has not had any surgeries or procedures to her back. She is eating and drinking without any difficulties. She is urinating normally and having normal bowel movements. She has not had any vaginal discharge, odor, or bleeding. Denies any drug allergies, IV drug use, previous history of spinal abscess. Denies any headache, fever, URI, sore throat, chest pain, palpitations, syncope, cough, shortness of breath, wheeze, dyspnea, abdominal pain, nausea/vomiting/diarrhea, urinary retention, dysuria, hematuria, loss of control of bowel or bladder, numbness/tingling, saddle anesthesia, muscle paralysis/weakness, or rash. - ROS Systems Reviewed and Negative: Yes All other systems reviewed and negative - REPRODUCTIVE LMP: Beginning of March Reproductive: DENIES: : - DERM Skin Color: Normal Past Medical History - General Information source: Patient - Social History Smoking Status: Former Smoker Chew tobacco use (# tins/day): No Frequency of alcohol use: None Drug Abuse: None Family History: Reviewed & Not Pertinent Patient has suicidal ideation: No Patient has homicidal ideation: No Neurological Medical History: Reports: Hx Migraine Renal/ Medical History: Denies: Hx Peritoneal Dialysis GI Medical History: Reports: Hx Gastroesophageal Reflux Disease, Hx Hiatal Hernia Vertical Provider Document - CONSTITUTIONAL Agree With Documented VS: Yes Notes: PHYSICAL EXAMINATION: GENERAL: Well-appearing, well-nourished and in no acute distress. LUNGS: Breath sounds clear to auscultation bilaterally and equal. No wheezes rales or rhonchi. HEART: Regular rate and rhythm without murmurs, rubs, gallops. ABDOMEN: Soft, nontender, nondistended abdomen. No guarding, no rebound. No masses appreciated. Normal bowel sounds present. No CVA tenderness bilaterally. No pulsatile mass Musculoskeletal: LE's b/l: FROM to passive/active. Strength 5+/5. No deficits noted. No bony tenderness of extremities. Back: FROM to passive/active. Strength 5+/5. No vertebral point tenderness, stepoffs, or deformities. No other bony tenderness, erythema, swelling, or ecchymosis. SLR negative b/l. + mild tenderness to the T/L paraspinal mm and to the soft tissue lateral lower thoracic back. Reproducible tenderness to those areas. No SI jt tenderness. No foot drop Extremities: No cyanosis, clubbing, or edema b/l. Peripheral pulses 2+. Capillary refill less than 2 seconds. NEUROLOGICAL: Normal speech, normal gait. Normal sensory, motor exams. Reflexes 2+ b/l. PSYCH: Normal mood, normal affect. SKIN: Warm, Dry, normal turgor, no rashes or lesions noted. - INFECTION CONTROL TRAVEL OUTSIDE OF THE [place] IN LAST 30 DAYS: No Course - Re-evaluation Re-evalutation: 04/18/18 15:57 Patient is an afebrile, well-hydrated, 27-year-old female who presents to the ED with acute on chronic low-mid back pain, soft tissue by evaluation today. Vitals are acceptable. PE is otherwise unremarkable for any focal neurological deficits. She has no significant tachycardia, tachypnea, or hypoxia. She is nontoxic-appearing and is tolerating p.o. without difficulties. There are no signs of infection. No other red flag symptoms noted. CBC, CMP, urinalysis, HCG were unremarkable for any acute pathology. No other labs or imaging warranted at this time based on H&P. Patient reports having multiple urinary tests and cultures as well as previously having a CT scan with no acute findings for the same complaint since August. Low suspicion for any meningitis, fracture, expanding/ruptured AAA, cauda equina syndrome, epidural mass lesion/abscess, herniated disc causing severe spinal stenosis, or other systemic infection at this time. Patient is aware that this condition can change from initial presentation and that she needs monitor symptoms closely for any acute changes. I will send her home with a prescription for a steroid taper and baclofen. Conservative measures otherwise for symptoms. Recheck with your PCM in 3-5 days. Consider consult with orthopedic/physical therapy. Return to the ED with any worsening/concerning symptoms otherwise as reviewed discharge. Patient is in agreement. - Vital Signs Vital signs: Temp Pulse Resp BP Pulse Ox 98.4 F 74 18 117/61 99 04/18/18 15:35 04/18/18 15:35 04/18/18 15:35 04/18/18 15:35 04/18/18 15:35 - Laboratory Result Diagrams: 04/18/18 13:30 04/18/18 13:30 Discharge - Discharge Clinical Impression: Thoracic back pain Qualifiers: Chronicity: acute Back pain laterality: bilateral Qualified Code(s): M54.6 - Pain in thoracic spine Low back pain Qualifiers: Chronicity: acute Back pain laterality: bilateral Sciatica presence: without sciatica Qualified Code(s): M54.5 - Low back pain Condition: Stable Disposition: HOME, SELF-CARE Instructions: Stretching Exercises for the Back ([facility]), Muscle Relaxers ([facility]) Additional Instructions: Rest, Ice Tylenol/ibuprofen as needed Light stretches daily Strength exercises as able Moist heat and massage may help F/u with your PCP in 3-5 days for a recheck Consider consult(s) with Orthopedics/physical therapy for ongoing/worsening symptoms Return to the ED with any worsening symptoms and/or development of fever, headache, chest pain, palpitations, syncope, shortness of breath, trouble breathing, abdominal pain, n/v/d, blood in stool/urine, loss of control of bowel /bladder, urinary retention, muscle weakness/paralysis, saddle anesthesia, numbness/tingling, or other worsening symptoms that are concerning to you. Prescriptions: Baclofen [Baclofen 10 mg Tablet] 5 - 10 mg PO BID PRN #10 tablet PRN Reason: Prednisone 20 mg PO ASDIR #18 tablet Referrals: [facility] [NO LOCAL MD] - Follow up as needed [facility] [Provider Group] - Follow up as needed
[2018-04-18] MEDS ORDERED: KETOROLAC TROMETHAMINE INJ/PF 30 MG/1 ML SDV IM ONE (16:03)
== END 2018-04-18 16:17 | disposition home or self-care (01) ==
LOC: ER 12:18
DX: M54.6 Pain in thoracic spine (principal); M54.5 Low back pain; M89.29 Other disorders of bone development and growth, multiple sites; Z87.891 Personal history of nicotine dependence
CPT/HCPCS: 99283; 96372; 36415; 87086; 85025; 81025; 80053; 81001; J1885

== ENCOUNTER → 2018-08-04 | Outpatient (CLI) | payer OTHER ==
[2018-08-04 16:00] LABS: AMORPHOUS SEDIMENT,URINE TRACE /HPF; APPEARANCE,URINE CLOUDY; BILIRUBIN,URINE NEGATIVE (NEGATIVE); COLOR,URINE YELLOW; GLUCOSE, URINE NEGATIVE (NEGATIVE); KETONES,URINE NEGATIVE (NEGATIVE); LEUKOCYTE ESTERASE,URINE NEGATIVE (NEGATIVE); NITRITE,URINE NEGATIVE (NEGATIVE); PROTEIN,URINE NEGATIVE (NEGATIVE); URINE SPECIFIC GRAVITY 1.017; UROBILINOGEN,URINE NEGATIVE mg/dL (<2.0)
[2018-08-04 16:34] LABS: FREE T3 3.86 pg/mL (2.77-5.27); FREE T4 (FREE THYROXINE) 0.95 ng/dL (0.78-2.19)
[2018-08-04 16:47] LABS: THYROID STIMULATING HORMONE 0.84 uIU/mL (0.47-4.68)
== END ==
LOC: CCC 15:08
DX: R35.0 Frequency of micturition (principal); R63.5 Abnormal weight gain
CPT/HCPCS: 36415; 81001; 83036; 84439; 84443; 84481

== ENCOUNTER → 2019-01-16 | Outpatient (CLI) | payer OTHER | LOC: CCC 09:38 | DX: L68.0 Hirsutism (principal); R63.5 Abnormal weight gain; N91.2 Amenorrhea, unspecified | CPT/HCPCS: 36415; 82533 ==